=== PATIENT | male | born 1990 | race Caucasian/White ===

== ENCOUNTER 2017-01-23 14:40 | Emergency (ER) | payer MEDICAID ==
[2017-01-23 14:46] VITALS: RESP 18; TEMP 97.4; O2SAT 98
--- NOTE | 2017-01-23 15:52 | C.PDOC ---
History Of Present Illness 26 yo male come in for evaluation of Right index finger injury sustained 5 days ago "when car door accidentally closed on finger". Pt reports, persistent throbbing pain over distal phalanx of Right index, noted subungual hematoma. Otherwise, pt denies obvious deformity, weakness, sensory or vascular deficits to Right hand. Ambulate to Ed for evaluation. Time Seen by Provider: 01/23/17 15:07 Chief Complaint (Nursing): Finger,Hand,&Wrist History Per: Patient History/Exam Limitations: no limitations Onset/Duration Of Symptoms: Days (5 days ago) Current Symptoms Are (Timing): Still Present Past Medical History Reviewed: Historical Data, Nursing Documentation, Vital Signs Vital Signs: Last Vital Signs Temp 97.4 F L 01/23/17 14:44 Pulse 59 L 01/23/17 14:44 Resp 18 01/23/17 14:44 BP 114/76 01/23/17 14:44 Pulse Ox 98 01/23/17 16:18 Family History: States: No Known Family Hx - Social History Hx Alcohol Use: Yes Hx Substance Use: Yes - Immunization History Hx Tetanus Toxoid Vaccination: Yes Hx Influenza Vaccination: No Hx Pneumococcal Vaccination: No Review Of Systems Except As Marked, All Systems Reviewed And Found Negative. Musculoskeletal: Positive for: Other ((+) Right index finger injury ). Negative for: Arm Pain Neurological: Negative for: Weakness, Numbness Physical Exam - Physical Exam Appears: Well, Non-toxic, No Acute Distress Skin: Normal Color, Warm Extremity: Normal ROM (Right hand), Tenderness (Right 2nd distal phalanx with subungual hematoma 80% of nail with mild edema over nail fold. No palpable deformity, no skin changes. FAROM, no neurovascular deficits.), No Deformity Neurological/Psych: Oriented x3, Normal Speech, Normal Motor, Normal Sensation, Normal Reflexes ED Course And Treatment O2 Sat by Pulse Oximetry: 98 - Other Rad X-Ray - Right Hand X-Ray: Interpreted by Me, Viewed By Me Interpretation: no acute fx Progress Note: RUE: sububgual hematoma over index finger drained with need gauge #19, covered with sterile dressing. On re-eavl, FAROM of Right index finger, no neurovascular deficits. Aluminium finger splint applied to Right index finger. Xray review and appears normal. Pt advised. ref. to f/u with hand in 2-3 days for re-eval. Medical Decision Making Medical Decision Making: PLAN: * X-Ray - Right Hand Disposition - Disposition Disposition Time: 16:21 Condition: STABLE Additional Instructions: LIght duty to injured finger Finger splint Follow up with hand specialist in 2-3 days for re-evaluation. Return to ED if any worsening or new changes. Instructions: Subungual Hematoma (ED) Forms: Work Excuse - Clinical Impression Clinical Impression: Subungual hematoma, Finger contusion - PA / JUNIOR LEGAL SECRETARY / Resident Statement MD/DO has reviewed & agrees with the documentation as recorded. - Scribe Statement The provider has reviewed the documentation as recorded by the Scribe Marimar Diggs All medical record entries made by the Scribe were at my direction and personally dictated by me. I have reviewed the chart and agree that the record accurately reflects my personal performance of the history, physical exam, medical decision making, and the department course for this patient. I have also personally directed, reviewed, and agree with the discharge instructions and disposition.
--- NOTE | 2017-01-23 16:35 | RAD ---
PROCEDURE: Right Index finger radiographs. HISTORY: injury COMPARISON: None available. FINDINGS: RIGHT INDEX FINGER: Unremarkable right 2nd digit, without acute displaced fracture identified. Remainder of the right hand (as seen on the AP view) grossly intact. JOINTS: No dislocation. SOFT TISSUES: Unremarkable. No evidence of radiopaque foreign body. OTHER FINDINGS: None. IMPRESSION: No acute displaced fracture identified.
[2017-01-23 16:39] VITALS: BP 106/69; PULSE 51
== END 2017-01-23 16:39 | disposition home or self-care (01) ==
LOC: C.ER 14:40
DX: S60.121A Contusion of right index finger with damage to nail, initial encounter (principal); W22.8XXA Striking against or struck by other objects, initial encounter

== ENCOUNTER 2018-06-08 00:01 | Emergency (ER) | payer MEDICAID ==
[2018-06-08 00:16] VITALS: BP 99/64; PULSE 62; RESP 18; TEMP 99.2; O2SAT 99
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
== END 2018-06-08 00:54 | disposition home or self-care (01) ==
LOC: C.ER 00:01 → SUPCPDRO 00:01 → C.ER 00:54
DX: S60.221A Contusion of right hand, initial encounter (principal); Y08.89XA Assault by other specified means, initial encounter; Y92.9 Unspecified place or not applicable